=== PATIENT | female | born 1955 | race Caucasian/White ===

== ENCOUNTER 2017-10-18 05:15 | Inpatient (IN) | payer BC ==
[2017-10-18] MEDS ORDERED: GABAPENTIN 300 MG CAP PO ONE (05:53)
[2017-10-18] MEDS ORDERED: ceFAZolin 2 GM/DEXTROSE 100 ML IV ONE (05:53)
[2017-10-18] MEDS ORDERED: ACETAMINOPHEN 500 MG TAB PO ONE (05:53)
[2017-10-18] MEDS ORDERED: LR 1,000 ML IV ONE (05:55)
[2017-10-18] MEDS ORDERED: EPINEPHrine 1 MG/ML INJ ONE (06:48)
[2017-10-18] MEDS ORDERED: OXYMETAZOLINE 30 ML NASAL SPRAY ONE (06:48)
[2017-10-18] MEDS ORDERED: THROMBIN (BOVINE) 20,000 UNIT VIAL TP ONE (06:48)
[2017-10-18] MEDS ORDERED: CHLORHEXIDINE GLUC HIBICLENS 118 ML BTL TP ONE (06:48)
[2017-10-18] MEDS ORDERED: SURGIFLO MATRIX KIT WITH THROMBIN 8 ML TP ONE (06:48)
[2017-10-18] MEDS ORDERED: BACITRACIN 50,000 UNITS/10 ML SYR IRR ONE (06:49)
--- NOTE | 2017-10-18 06:54 | PDHPUP ---
History & Physical Update H&P update statement: This history and physical update is based on an assessment of the patient which was completed after admission or registration (within 24 hours), but prior to the surgery/procedure. H&P update: H&P reviewed & patient examined, no change in patient's condition since H&P completed (Consents signed and site marked. All questions answered. Will do exposure with Dr Ernst of ENT who will also inject her vocial cords intra-operatively.)
--- NOTE | 2017-10-18 06:54 | PDANEPAE ---
ANE History of Present Illness cervical radiculopathy here for ACDF ANE Past Medical History - Cardiovascular History Hx Hypertension: Yes Hx Arrhythmias: Yes Hx Chest Pain: No Hx Coronary Artery / Peripheral Vascular Disease: No Hx CHF / Valvular Disease: No Hx Palpitations: No - Pulmonary History Hx COPD: No Hx Asthma/Reactive Airway Disease: No Hx Recent Upper Respiratory Infection: No Hx Oxygen in Use at Home: No Hx Sleep Apnea: Yes Sleep Apnea Screening Result - Last Documented: Positive - Neurologic History Hx Cerebrovascular Accident: No Hx Seizures: No Hx Dementia: No - Endocrine History Hx Diabetes: No - Renal History Hx Renal Disorders: No - Liver History Hx Hepatic Disorders: No - Neurological & Psychiatric Hx Hx Neurological and Psychiatric Disorders: Yes Neurological / Psychiatric History Comment: 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 GENERALIZED ANXIETY - Cancer History Hx Cancer: No - Congenital Disorder History Hx Congenital Disorders: No - GI History Hx Gastrointestinal Disorders: Yes Gastrointestinal History Comment: REFLUX - Other Health History Other Health History: CONCUSSION WITH BPPV - Chronic Pain History Chronic Pain: Yes (RA,FIBROMYALGIA) - Surgical History Prior Surgeries: bone spur removed left great toe ANE Review of Systems Review of Systems: - Exercise capacity METS (RN): 4 METS ANE Patient History - Allergies Allergies/Adverse Reactions: acetaminophen [From Tylenol] Allergy (Verified 10/18/17 06:11) codeine Allergy (Verified 09/18/17 14:27) Vomiting oxycodone Allergy (Verified 09/18/17 14:27) Rash Penicillins Allergy (Verified 09/18/17 14:27) Rash Sulfa (Sulfonamide Antibiotics) Allergy (Verified 09/18/17 14:27) Other-Enter Comments - Home Medications Home medications: home medication list seen and reviewed Home Medications: Adalimumab [Humira] 40 mg SQ Q14D 09/13/17 [Last Taken 09/18/17] Ascorbate Calcium/Bioflavonoid [Constanza-C 500 mg Tablet] 1 tab PO DAILY 09/13/17 [ Last Taken 10/11/17] Budesonide [Rhinocort Allergy] 1 spray NS DAILY PRN 09/13/17 [Last Taken ] Cyanocobalamin [Vitamin B12 (*)] 500 mcg PO DAILY 09/13/17 [Last Taken 10/08/17] DULoxetine [Cymbalta 60 MG (*)] 60 mg PO DAILY 09/13/17 [Last Taken 10/18/17] Diltiazem Cd [Cardizem ER 180 MG (RX)] 180 mg PO DAILY 09/13/17 [Last Taken 07/29] Gabapentin [Neurontin 300 MG (*)] 600 mg PO HS PRN 09/13/17 [Last Taken 10/17/17 ] Hydroxychloroquine Sulfate [Plaquenil 200 mg (*)] 200 mg PO DAILY 09/13/17 [ Last Taken 10/18/17] Ipratropium 0.03% Nasal [Atrovent 0.03% Nasal (*)] 2 spr EACHNARE BID 09/13/17 [ Last Taken 10/17/17] Leflunomide [Arava 20 mg (*)] 20 mg PO DAILY 09/13/17 [Last Taken 09/18/17] Levocetirizine Dihydrochloride [Xyzal] 5 mg PO HS 09/13/17 [Last Taken 10/17/17] Methocarbamol [Robaxin 500 mg (*)] 500 mg PO BID PRN 09/13/17 [Last Taken ] Pyridoxine HCl [Vitamin B-6 100 mg (*)] 50 mg PO DAILY 09/13/17 [Last Taken ] celeCOXIB [Celebrex (*)] 200 mg PO HS 09/13/17 [Last Taken 10/11/17] traZODone [traZODONE 50MG (*)] 50 mg PO HS 09/13/17 [Last Taken 10/17/17] - NPO status NPO Since - Liquids (Date): 10/18/17 NPO Since - Liquids (Time): 04:00 NPO Since - Solids (Date): 10/17/17 NPO Since - Solids (Time): 22:00 - Anes Hx Anes Hx: no prior problems - Smoking Hx Smoking Status: Former smoker - Alcohol Use Alcohol Use: Occasionally - Family Anes Hx Family Anes Hx: none Family Hx Anesthesia Complications: none ANE Labs/Vital Signs - Vital Signs Blood Pressure: 109/66 Heart Rate: 67 Respiratory Rate: 16 O2 Sat (%): 97 Height: 154.94 cm Weight: 58.967 kg ANE Physical Exam - Airway Neck exam: FROM Mallampati Score: Class 2 Mouth exam: normal dental/mouth exam - Pulmonary Pulmonary: no respiratory distress, clear to auscultation - Cardiovascular Cardiovascular: regular rate and rhythym, no murmur, rub, or gallop - ASA Status ASA Status: III ANE Anesthesia Plan Anesthesia Plan: general endotracheal anesthesia Total IV Anesthesia: Yes
[2017-10-18] MEDS ORDERED: MIDAZOLAM 2 MG/2 ML VIAL IVP ONE (06:55)
[2017-10-18] MEDS ORDERED: REMIFENTANIL HCL 1 MG VIAL ONE (06:58)
[2017-10-18] MEDS ORDERED: fentaNYL 100 MCG/2 ML INJ ONE ×3 (06:58→11:47)
[2017-10-18] MEDS ORDERED: PROPOFOL 200 MG/20 ML VIAL ONE (06:59)
[2017-10-18] MEDS ORDERED: PROPOFOL/EMULSION 500 MG/50 ML BOTTLE IV ONE (06:59)
[2017-10-18] MEDS ORDERED: LIDOCAINE 2% 100 MG/5 ML SYR ONE (07:01)
--- NOTE | 2017-10-18 07:17 | PDHPUP ---
History & Physical Update H&P update statement: This history and physical update is based on an assessment of the patient which was completed after admission or registration (within 24 hours), but prior to the surgery/procedure. H&P update: H&P reviewed & patient examined, changes noted (Laryngoscopy performed. Right true vocal card paralysis. remainder of laryngeal anatomy unremarkable.)
[2017-10-18] MEDS ORDERED: GABAPENTIN 300 MG CAP PO PRN (08:38)
[2017-10-18] MEDS ORDERED: [UNRECOGNIZED DRUG - REMARK] NS PRN (08:38)
[2017-10-18] MEDS ORDERED: METHOCARBAMOL 500 MG TAB PO PRN (08:38)
[2017-10-18] MEDS ORDERED: ONDANSETRON DISINTEGRATING 4 MG TAB PO PRN (08:39)
[2017-10-18] MEDS ORDERED: oxyCODONE IR 5 MG TAB PO PRN (08:39)
[2017-10-18] MEDS ORDERED: BISACODYL 10 MG SUPP PR PRN (08:39)
[2017-10-18] MEDS ORDERED: MAGNESIUM HYDROXIDE 30 ML UDCUP PO PRN (08:39)
[2017-10-18] MEDS ORDERED: LACTULOSE 20 GM/30 ML UDCUP PO PRN (08:39)
--- NOTE | 2017-10-18 08:47 | POSTOPPROG ---
Post Op Note Date of Operation: 10/18/17 Surgeon: Baldemar Lazo Tool Carrier: DANISHA Chavez PAC Anesthesia: GET(General Endotracheal) Pre-op Diagnosis: Cervical stenosis Post-op Diagnosis: Cervical stenosis Indication: Cervical stenosis Procedure: Exploration and removal of prior hardware, ACDF C4/5 Inf/Abcess present in the surg proc area at time of surgery?: No EBL: Minimal Drains: Heladio MCFARLAND Addendum - Addendum .: S: Nausea ewiht some neck pain O: NAD A&Ox3 MAEX4 5/5 and equal in BUE and BLE. Incision c/d/i 62 F s/p Exploration and removal of prior hardware, ACDF C4/5 -Optimize pain management - NO TALKING per ENT for 24 hours -PT/OT -Post op xrays pending -Advance diet as tolerated -Please notify NS with any change in neuro/motor exam
[2017-10-18] MEDS ORDERED: DEXAMETHASONE 4 MG/ML VIAL ONE (10:05)
[2017-10-18] MEDS ORDERED: ONDANSETRON 4 MG/2 ML VIAL ONE ×2 (10:05→10:19)
[2017-10-18] MEDS ORDERED: HYDROmorphONE/DILAUDID 1 MG/ML INJ ONE ×2 (10:23→11:47)
[2017-10-18] MEDS ORDERED: ALBUTEROL 3 ML DEYVIAL IH PRN (10:24)
[2017-10-18] MEDS ORDERED: ONDANSETRON 4 MG/2 ML VIAL IVP PRN (10:24)
[2017-10-18] MEDS ORDERED: NALOXONE HCL 0.4 MG/ML INJ IVP PRN (10:24)
--- NOTE | 2017-10-18 10:24 | POSTANESTH ---
Post Anesthetic Evaluation Cardiovascular Status: Normal, Stable Respiratory Status: Normal, Stable Level of Consciousness/Mental Status: Can Participate in Eval, Alert and Oriented Pain Control: Adequate, Prn Tx Ordered Nausea/Vomiting Control: Adequate, Prn Tx Ordered Complications Possibly Related to Anesthesia: None Noted
[2017-10-18] MEDS: fentaNYL 100 MCG/2 ML INJ IVP PRN ×3 (10:25→11:50)
[2017-10-18] MEDS: HYDROmorphONE/DILAUDID 1 MG/ML INJ IVP PRN ×4 (10:25→11:50)
[2017-10-18] MEDS ORDERED: HYDROmorphONE/DILAUDID 2 MG TAB PO PRN (10:53)
--- NOTE | 2017-10-18 11:31 | GOP ---
DATE OF OPERATION: 10/18/2017 SURGEON: Baldemar Lazo MD COMPACTOR DRIVER: Yolie Chavez SECOND MEAT BONER AND SLICER: Joao Ernst from ENT. ANESTHESIA: General PREOPERATIVE DIAGNOSIS: 1. History of prior spinal fusion C5 through C7, with adjacent level breakdown C4-C5. 2. Cervical spondylosis C4-C5. 3. Cervicalgia. 4. Radiculopathy. 5. Treatment refractory to nonoperative intervention. POSTOPERATIVE DIAGNOSIS: 1. History of prior spinal fusion C5 through C7, with adjacent level breakdown C4-C5. 2. Cervical spondylosis C4-C5. 3. Cervicalgia. 4. Radiculopathy. 5. Treatment refractory to nonoperative intervention. PROCEDURE PERFORMED: 1. Anterior arthrodesis with approach to C4, C5, C6. 2. Exploration of prior anterior cervical hardware C5 through C7, with subsequent removal of anterior hardware over C5/6. 3. C4-C5 diskectomy with bilateral foraminotomies, osteophytectomies, and interbody fusions using a 7 mm titanium coated PEEK cage filled with morselized autograft and allograft. 4. Anterior cervical fusion C4-C5 with a 19 mm Medtronic Zevo plate. 5. Use of intraoperative fluoroscopy, less than 1 hour physician time. 6. Use of neuromonitoring. 7. Use of the operating microscope. FINDINGS: per imaging SPECIMENS: None. ESTIMATED BLOOD LOSS: 50 mL. INDICATIONS: The patient has undergone a prior anterior cervical fusion several years ago between C5 and C7. 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 She developed adjacent level breakdown with cervicalgia C4 through C5 above her prior fusion. After discussion of the risks, benefits, and treatment alternatives, and after failing nonoperative intervention, we decided to proceed forth with surgery as described above. DESCRIPTION OF PROCEDURE: The patient was brought to the operating theater and underwent general endotracheal anesthesia without complications. She had Venodynes, FADUMO hose, and the appropriate lines placed by Anesthesia. Her head was then maintained supine on the operating table. Dr. Joao Ernst will describe in a separate operative report the injection of her vocal cords. Once this was completed, the patient's head was placed in slight extension. All bony processes were inspected and padded. Using lateral fluoroscopy and a spinal needle, we then picked our entry point at the C4 through C6 levels. This was marked as a transverse incision on the right side of her neck. This area was then prepped and draped in the usual sterile surgical fashion. A time- out was completed per protocol, and the patient received antibiotics within 1 hour of incision. The incision was taken down with the scalpel blade, and then Dr. Ernst will describe in a separate operative report the anterior dissection to get to the anterior cervical hardware at C5-C6. We then continued our dissection more cranially at C4-C5. Deep retractors placed to maintain exposure. At this point , I did not feel that it was safe or unwarranted to expose the remainder of the plate inferiorly. She appeared to be solidly fused upon further exploration as she had good bony growth over the hardware at C5-C6. At this point, we used a carbide bit to cut the plate between the C5 and C6 levels. We then backed up 2 securing screws that were in C5 and sequentially removed the bilateral screws, at which point we removed the superior aspect of the hardware from the C5 vertebral body and passed it off the field. This was from the [employer] DOC plate system. We then elevated the longus coli muscle from the anterior vertebral body of C4. The microscope was brought into the field to assist with microscopic dissection and maintain illumination and magnification. We placed a Knapp pin into the vertebral body of C4 and C5 and and placed C4-C5 into mild distraction. We completed a C4-C5 diskectomy with bilateral foraminotomies and osteophytectomies. We prepared the cartilaginous endplates and measured the interbody space. We then placed a 7 mm titanium coated PEEK cage filled with morselized autograft and allograft into the C4-C5 disk space. We removed the Knapp pins and drilled down the anterior osteophytes. We secured a 19 mm Medtronic Zevo plate onto the vertebral bodies of C4 and C5. I did have the plate somewhat cranially secondary to the fact that the patient had 2 large holes from the prior screws in C5 and I wanted to make sure that we could secure plate well. AP and lateral x-rays demonstrated good placement of the hardware. The wound was then irrigated copiously with bacitracin irrigation. We left a drain in subfascial space. The wound was closed in multiple layers using Vicryl sutures deep layers and Dermabond for the skin. The patient's wounds were dressed sterilely. She was then awakened, extubated, and taken to the recovery room in stable condition. There were no complications and no noted changes on neuromonitoring throughout the procedure. COMPLICATIONS: None. /[id number]/MODL MTDD
[2017-10-18] MEDS ORDERED: SCOPOLAMINE HYDROBROMIDE 1 MG/3 DAYS PATCH TD ONE (12:15)
[2017-10-18] MEDS ORDERED: PROMETHAZINE HCL 25 MG/ML INJ IVP ONE ×2 (14:00→23:30)
[2017-10-18] MEDS: ceFAZolin 2 GM/DEXTROSE 100 ML IV SCH ×2 (14:07→22:05)
[2017-10-18] MEDS: DULoxetine 60 MG CAP PO SCH (15:13)
[2017-10-18] MEDS: FAMOTIDINE 20 MG TAB PO SCH ×2 (15:13→22:10)
[2017-10-18] MEDS: DILTIAZEM CD 180 MG CAP PO SCH (15:13)
[2017-10-18] MEDS: SENNOSIDES/DOCUSATE SODIUM TAB PO SCH ×2 (15:14→22:11)
[2017-10-18] MEDS: HYDROXYCHLOROQUINE SULFATE 200 MG TAB PO SCH (15:14)
[2017-10-18] MEDS: IPRATROPIUM 0.03% NASAL SPRAY EACHNARE SCH ×2 (15:14→22:10)
[2017-10-18] MEDS ORDERED: CEPACOL LOZENGE PO PRN (17:15)
[2017-10-18] MEDS: NS 1,000 ML IV SCH (18:33)
[2017-10-18] MEDS: ONDANSETRON 4 MG/2 ML VIAL IVP PRN (18:39)
[2017-10-18] MEDS: PROMETHAZINE HCL 25 MG/ML INJ IVP PRN (19:54)
[2017-10-18] MEDS: CETIRIZINE 10 MG TAB PO SCH (22:10)
[2017-10-18] MEDS: traZODone 50 MG TAB PO SCH (22:11)
[2017-10-18] MEDS ORDERED: PROMETHAZINE HCL 25 MG/ML INJ IVP PRN (23:23)
[2017-10-18] MEDS ORDERED: hydrALAZINE 20 MG/ML VIAL IVP PRN (23:29)
[2017-10-18] MEDS ORDERED: DEXAMETHASONE 4 MG/ML VIAL IVP ONE (23:30)
[2017-10-19] MEDS: ONDANSETRON 4 MG/2 ML VIAL IVP PRN (04:19)
[2017-10-19] MEDS: NS 1,000 ML IV SCH (05:54)
[2017-10-19] MEDS: SENNOSIDES/DOCUSATE SODIUM TAB PO SCH ×2 (08:00→20:34)
[2017-10-19] MEDS: FAMOTIDINE 20 MG/NACL 50 ML IV SCH ×2 (08:00→20:34)
[2017-10-19] MEDS: DILTIAZEM CD 180 MG CAP PO SCH (08:00)
[2017-10-19] MEDS: POLYETHYLENE GLYCOL 3350 17 GM PKT PO PRN (08:00)
[2017-10-19] MEDS: DULoxetine 60 MG CAP PO SCH (08:01)
[2017-10-19] MEDS: HYDROXYCHLOROQUINE SULFATE 200 MG TAB PO SCH (08:01)
[2017-10-19] MEDS: IPRATROPIUM 0.03% NASAL SPRAY EACHNARE SCH ×2 (08:18→21:55)
[2017-10-19] MEDS: diphenhydrAMINE 25 MG CAP PO PRN ×3 (08:36→20:35)
[2017-10-19] MEDS: PROMETHAZINE HCL 25 MG/ML INJ IVP PRN (08:36)
[2017-10-19] MEDS: oxyCODONE IR 5 MG TAB PO PRN ×3 (08:53→20:35)
--- NOTE | 2017-10-19 09:03 | NEUSURGPN ---
Assessment/Plan: 62 F s/p Exploration and removal of prior hardware, ACDF C4/5 PO1 -Optimize pain management, has benadryl available given narcotic allergies. Tried Morphine/dilaudid but tien having increased nausea/vomiting. - NO TALKING per ENT for 24 hour -PT/OT -Post op xrays pending -Anacmetics available for nausea -Advance diet as tolerated -Please notify NS with any change in neuro/motor exam Subjective: Nausea, vomiting over night neck pain Objective: NAD A&Ox3 MAEX4 5/5 and equal in BUE and BLE. Incision c/d/i - Physician Discussed Patient with : [facility] Physical Exam - Vitals, I&O, Labs I and O 10/18/17 10/19/17 10/20/17 05:59 05:59 05:59 Intake Total 3420 Output Total 2860 500 Balance 560 -500 Weight 58.967 kg Intake: Oral (ml) 520 IV Intake (ml) 1900 IV Infused (ml) 1000 Ns 1,000 ml @ 100 mls/hr 900 IV CONT BOONE Rx#: [id number] ceFAZolin 2 GM/DEXTROSE 100 100 ml @ 200 mls/hr IV Q8HRS BOONE Rx#:[id number] Output: Urine (ml) 2100 500 Toilet 2100 500 Estimated Blood Loss (ml) 50 Emesis (ml) 645 TAO Drain Output (ml) 65 Anterior Neck Heladio 65 [place] Other: Number of Voids Toilet 1 1 Number of Emesis 1 Occurrences Vital Signs Temp Pulse Resp BP Pulse Ox 36.9 C 86 16 163/76 H 100 10/19/17 07:21 10/19/17 07:21 10/19/17 07:21 10/19/17 07:21 10/19/17 07:21 Laboratory Results 10/18/17 00:05 ICD10 Worksheet Patient Problems: Problems Problem Status Onset Cervical stenosis of spine Acute - ICD10 Problem Qualifiers (1) Cervical stenosis of spine
--- NOTE | 2017-10-19 14:05 | ASMTCMCOM ---
CM Note CM Note Notes: Pt had planned spinal surgery. OT/PT/[employer] rec home. Pt resides with spouse. Anticipate pt will d/c when medically stable. No CM d/c needs identified. CM available for changes/needs. Date Signed: 10/19/2017 02:04 PM Electronically Signed By:MICHELLE Hough
[2017-10-19] MEDS: DIAZEPAM 5 MG TAB PO PRN ×2 (14:41→20:36)
--- NOTE | 2017-10-19 15:44 | PDMN ---
Medical Necessity Medical necessity: MCG: S320 anterior fusion- ACDF C4,5,6 , removal of anterior hardware, C4-5 discectomy with bilateral foraminotomies, ... pt with ongoing N/V/pain further monitoring needed change to INPT 10/19/17 @ 15:19
[2017-10-19] MEDS: traZODone 50 MG TAB PO SCH (20:36)
[2017-10-19] MEDS: CETIRIZINE 10 MG TAB PO SCH (20:36)
[2017-10-20] MEDS: diphenhydrAMINE 25 MG CAP PO PRN ×2 (05:22→08:57)
[2017-10-20] MEDS: oxyCODONE IR 5 MG TAB PO PRN ×2 (05:23→08:58)
[2017-10-20 08:07] VITALS: BP 119/74
[2017-10-20] MEDS: SENNOSIDES/DOCUSATE SODIUM TAB PO SCH (08:54)
[2017-10-20] MEDS: DULoxetine 60 MG CAP PO SCH (08:54)
[2017-10-20] MEDS: DILTIAZEM CD 180 MG CAP PO SCH (08:54)
[2017-10-20] MEDS: HYDROXYCHLOROQUINE SULFATE 200 MG TAB PO SCH (08:54)
[2017-10-20] MEDS: POLYETHYLENE GLYCOL 3350 17 GM PKT PO PRN (08:55)
[2017-10-20] MEDS: DIAZEPAM 5 MG TAB PO PRN (08:58)
[2017-10-20] MEDS: FAMOTIDINE 20 MG/NACL 50 ML IV SCH (08:59)
[2017-10-20] MEDS: IPRATROPIUM 0.03% NASAL SPRAY EACHNARE SCH (09:00)
--- NOTE | 2017-11-04 11:01 | GDS ---
ADMISSION DIAGNOSES: 1. Cervicalgia. 2. Cervical stenosis. 3. Right true vocal cord paralysis. PROCEDURES: On 10/18/2017, redo approach for anterior cervical diskectomy and fusion by Dr. Klever Lazo: 1. By Dr. Ernst: Right vocal cord injection and laryngoscopy. 2. By Dr. Lazo: Anterior cervical diskectomy and fusion at C4-5. HOSPITAL COURSE/HISTORY/MAJOR MEDICAL FINDINGS: The patient is a 62-year-old woman who is well known to [facility], who had undergone an ACDF by a prior surgeon at C5-C7. She was having some continued neck pain with radiculopathy. She underwent diagnostic injections which were confirmatory for this level being symptomatic and the risks, benefits, and alternatives to proceeding with an ante rior cervical diskectomy and fusion with C4-5 were thoroughly discussed with the patient. Because of her prior hardware and her right vocal cord paralysis ENT was used to assist with the exposure as wel l as they did a vocal cord injection prior to the surgery. The patient tolerated these procedures we ll. She was extubated in the operating room, and transferred the PACU. Once awake and alert in the PACU, she was transferred to the floor. While on the floor she worked with physical and occupational therapy. Her diet was advanced and her pain management was optimized. She was asked not to speak f or 24 hours post surgery per guidelines of Dr. Ernst with a vocal cord injection. Her postoperative x-rays demonstrated intact hardware without any evidence of failure. She was deemed fit for dischar ge to home on 10/17/2017, in stable condition. DISCHARGE MEDICATIONS: Please see the EMR system for the patient's discharge medications. She was s ent home with both pain medication and muscle relaxer and instructed to use these as tolerated. DISCHARGE INSTRUCTIONS: Patient is instructed to avoid all bending, twisting, lifting anything great er than 5 pounds. She is instructed not to drive while taking narcotic pain medication. If the patient develops any fever, redness, swelling. Pain is not relieved by her pain medication sh e is encouraged to give the [facility] office a call. The patient will follow up with Dr. Ernst's group in regard to her vocal cord paralysis. If patient develops any life-threatening emergent conditions, such as chest pain, signs or symptoms o f stroke, or gross motor loss in her bilateral upper or bilateral lower extremities,she is encouraged to go to her local emergency room. FOLLOWUP CARE: Patient will follow up with Dr. Ernst per his protocol. She will follow up with Dr. Lazo or one of his PA's in approximately 2 or 3 weeks. If she has any questions or concerns prior to that time, she is encouraged to give our office a call. /[id number]/MODL
--- NOTE | 2017-11-26 23:53 | GOP ---
DATE OF OPERATION: 10/18/2017 SURGEON: Joao Ernst MD ANESTHESIA: General. PREOPERATIVE DIAGNOSIS: Right true vocal cord paralysis, cervical spondylosis of C4 through C5. POSTOPERATIVE DIAGNOSIS: PROCEDURE PERFORMED: Right true vocal fold injection, hyaluronic acid injection thyroplasty, assist in anterior cervical approach. FINDINGS: SPECIMENS: None. ESTIMATED BLOOD LOSS: Minimal. INDICATIONS: Patient was seen in outpatient clinic and had previously undergone a spinal fusion of C 5 through C7 with resulting postoperative right vocal cord paralysis. She was also a candidate for a nterior arthrodesis revision approach in C4 through C6. Given her history and findings, she was appr opriate for the above-stated procedures with me being the primary surgeon on the injection thyroplast y and assisting Dr. Lazo in the anterior approach to the cervical spine. DESCRIPTION OF PROCEDURE: Patient was brought to the operating room by Anesthesiology and placed on the operating table. Once the appropriate level of anesthesia was achieved, the patient was prepped and draped for the right true vocal fold injection. The patient's head was placed in a sniffing posi tion. A teeth guard was placed at the maxillary teeth. The oral cavity was palpated manually for ma sses or soft palate deficiency. None were found. A Dedo laryngoscope was then passed through the or al cavity, oropharynx, and through into visualized structures of the larynx. General inspection was completed, and no masses or lesions were found. The laryngoscope was then used to localize the right true vocal fold. At this point, a Lewy bar was placed in order to suspend the laryngoscope for appr opriate visualization. The binocular microscope was brought onto the surgical field and used to visu roma the vocal folds. The right and left folds were palpated with a probe and found to be soft and without mass. The Prolaryn implant injection was prepared. Under binocular microscopy, the needle w as placed at the arcuate line of the right true vocal fold approximately 2/3 posteriorly. It was ins erted to the injection marking on the needle. At that point 0.5 mL were injected into the true vocal fold. Injection stopped when there was appropriate medialization and plumping of the true vocal fol d. The needle was then withdrawn. There was no significant extrusion of the injected material. The re was no bleeding visualized. The patient tolerated this well. The laryngoscope and the teeth guar d were removed. The patient was then turned over to Neurosurgery for preparation for the anterior approach to the nec kYg Mitchell served as mail handler assistant to Dr. Lazo. He describes the localization of the entry point for the ri ght-sided incision. This area was prepped and draped as described by Dr. Lazo. A 4 cm horizontal right cervical incision was created with a 15 blade. Subcutaneous dissection continued with Bovie el ectrocautery in order to create a subplatysmal flap both superiorly and inferiorly. The anterior bor jose alfredo of the sternocleidomastoid muscle was seen, and dissection continued vertically along this in ord er to lateralize the muscle. Once lateralized, the carotid sheath was visualized. Dissection contin ued medial to this as the carotid sheath was lateralized. Dissection continued in a paratracheal maryam ne posteriorly. As dissection continued deeper, care was taken to avoid the esophagus. The esophagu s was not palpated nor visualized. With the spinal processes and cervical hardware palpable through fibrotic soft tissue, dissection continued with Bovie electrocautery over the cervical hardware at C5 -6. Retractors were placed to maintain exposure, and the superior portion of the hardware was visual ized. At this point, the patient was turned over to Dr. Lazo and his mail handler assistant, BARTOLO Jc. Refer to their dictation for the remainder of the case. COMPLICATIONS: None. /[id number]/MODL
== END 2017-10-20 13:11 | disposition home or self-care (01) | DRG 472 ==
LOC: F3N 05:15 → INTOOBSV 05:15 → F3N 12:22 → OBSVTOIN 10-19 15:19
PROVIDERS: ADMIT Neurological Surgery; ATTEND Neurological Surgery
PROC: 0QP004Z Removal of Internal Fixation Device from Lumbar Vertebra, Open Approach (ICD-10-PCS; principal; 2017-10-18 07:15)
PROC: 0ST20ZZ Resection of Lumbar Vertebral Disc, Open Approach (ICD-10-PCS; principal; 2017-10-18 07:15)
PROC: 0RG10A0 Fusion of Cervical Vertebral Joint with Interbody Fusion Device, Anterior Approach, Anterior Column, Open Approach (ICD-10-PCS; principal; 2017-10-18 07:15)
PROC: 3E0D7GC Introduction of Other Therapeutic Substance into Mouth and Pharynx, Via Natural or Artificial Opening (ICD-10-PCS; 2017-10-18 07:15)
DX: M47.22 Other spondylosis with radiculopathy, cervical region (principal); M50.320 Other cervical disc degeneration, mid-cervical region, unspecified level; J38.01 Paralysis of vocal cords and larynx, unilateral; G58.8 Other specified mononeuropathies; M06.9 Rheumatoid arthritis, unspecified; M35.00 Sjogren syndrome, unspecified; G47.33 Obstructive sleep apnea (adult) (pediatric); I47.1 Supraventricular tachycardia; E78.5 Hyperlipidemia, unspecified; Z98.1 Arthrodesis status; Z87.891 Personal history of nicotine dependence
CPT/HCPCS: 92526-GN; 92610-GN; 97116-GP; 97161-GP; 97165-GO; C1713; C1878; G0378; J0171; J0360; J0690; J1100; J1170; J2001; J2250; J2270; J2405; J2550; J2704; J3010